=== PATIENT | female | born 2000 | race Caucasian/White ===

== ENCOUNTER 2021-10-30 19:41 | Emergency (ER) | payer BC, SELFPAY ==
[2021-10-30 19:43] VITALS: BP 131/88; PULSE 87; RESP 16; TEMP 36.5; O2SAT 99; BMI 44.1
[2021-10-30 20:20] VITALS: BP 116/71; BP 129/85; BP 150/78; PULSE 123; PULSE 74; PULSE 80
[2021-10-30 20:57] LABS: Basophils # 0.2 K/mm3 (0-0.2); Basophils % 1.3 % (0.1-2.0); Eosinophils # 0.2 K/mm3 (0.0-0.4); Eosinophils % 2.1 % (0.1-12.0); Hematocrit 41.6 % (37.0-47.0); Hemoglobin 13.4 g/dL (12.2-16.2); Lymphocytes # 3.2 K/mm3 (0.7-4.5); Lymphocytes % 29.3 % (10-50); Mean Corpuscular HGB Conc 32.2 g/dL (31.8-35.4); Mean Corpuscular Hemoglobin 25.2 pg (27.0-31.2); Mean Corpuscular Volume 78.3 fl (81-99); Monocytes # 0.6 K/mm3 (0.1-1.0); Monocytes % 5.3 % (1.7-9.3); Neutrophils # 6.8 K/mm3 (1.8-7.8); Platelet Count 329 K/mm3 (142-424); Red Blood Count 5.32 M/mm3 (4.20-5.40); Red Cell Distribution Width 16.5 % (11.5-17.5)
[2021-10-30 20:58] LABS: Chloride 103 mmol/L (98-107); Sodium 138 mmol/L (136-145)
[2021-10-30 20:59] LABS: Potassium 4.1 mmoL/L (3.5-5.1)
[2021-10-30 21:01] LABS: Alanine Aminotransferase 20 U/L (12-78); Albumin Level 4.5 g/dl (3.5-5.0); Albumin/Globulin Ratio 1.5 (1.1-1.8); Alkaline Phosphatase 102 U/L (38-126); Anion Gap 13.1 mEq/L (5-15); Aspartate Amino Transferase 28 U/L (14-36); Blood Urea Nitrogen 14 mg/dl (7-17); Carbon Dioxide 26 mmol/L (22.0-30.0); Creatinine Clearance Estimated 131 mL/min (50-200); Estimated Glomerular Filt Rate 124 ml/min (>60); GFR (African American) 150 ML/MIN (>60); Globulin 3.1 g/dL (1.3-3.2); Total Protein,Serum 7.6 g/dl (6.3-8.2)
[2021-10-30 21:02] LABS: Calcium 8.7 mg/dl (8.4-10.2); Glucose 96 mg/dl (74-100)
[2021-10-30 21:06] LABS: Bilirubin,Total < 0.1 mg/dl (0.2-1.3)
[2021-10-30 21:06] LABS: Microscopic, Urine URINE MICROSCOPIC (MICROSCOPIC)
[2021-10-30 21:13] LABS: Appearance,Urine CLEAR (Clear); Bilirubin,Urine Negative (Negative); Blood, Urine Negative (Negative); Color,Urine YELLOW (Yellow); Glucose,Urine (UA) Negative (Negative); Ketones,Urine Negative (Negative); Leukocyte Esterase,Urine Negative (Negative); Nitrate,Urine Negative (Negative); PH,Urine 6.5 (5.0-8.5); Protein,Urine Negative (Negative); Urobilinogen,Urine 0.2 EU/dl (0.2)
--- NOTE | 2021-10-30 21:23 | HMH.EDHA ---
Discharge Plan Disposition Chief Complaint: Headache Referrals Follow up/Referrals: Georgina Trujillo [Primary Care Provider] - See instructions Clinical Impressions Clinical Impression: Dizziness Instructions Patient Instructions: DI for Headache Discharge ED Provider: Daniel Salinas Headache HPI General Chief Complaint: Headache Stated Complaint: nausea, PANDEY, stomach ache Time Seen by Provider: 10/30/21 21:23 Mode of Arrival: Ambulatory Source of Information: Patient, Significant Other and Medical Record Limitations: No Limitations Description of Symptoms (Recalled from ER Triage Doc. by RN): pt states that she has been light headed dizzieness light headache stomach ache. pt states this has been going on 2 days. the pt states she has a hx of migranes and feels this may be an indicator, History of Present Illness HPI Narrative: over the last few day has episodes of dizzyness dena with mov - no fever/rash or trauma and no focal neuro sx - no recent viral illness MD Complaint: headache Onset (ago): day(s) Location: diffuse Severity: moderate Associated symptoms: none Treatments prior to arrival: none Related Data Allergies Allergy/AdvReac Type Severity Reaction Status Date / Time morphine AdvReac Mild Hives Verified 10/30/21 20:[address] [facility] History Hepatitis A Screen Attestation statement:: This patient has been screened for Hepatitis A risk factors. I have reviewed the patient's past medical history: Yes Social History Smoking Status: Never smoker [facility] Social History Smoking Status: Never smoker alcohol intake: never current occupational status: employed Travel in the last 8 weeks: None ROS Obtained: Yes All systems reviewed & no additional complaints except as documented Constitutional Constitutional: Denies fever(s) and Reports headache(s) Eyes Eyes: Denies diplopia and Denies loss of peripheral vision ENT Ears, Nose, Mouth, and Throat: Reports dizziness, Reports headache(s) and Denies hearing loss Cardiovascular Cardiovascular: Reports chest pain with activity Respiratory Respiratory: Denies cough Gastrointestinal Gastrointestingal: Denies dyspepsia Genitourinary Female Genitourinary: Denies flank pain Musculoskeletal Musculoskeletal: Denies back pain Integumentary/Breasts Skin/Breast: Denies rash Neurologic Neurologic: Reports dizziness and Reports headache(s) Physical Exam General General appearance: alert and in no apparent distress Head Head exam: normocephalic Eye Eye exam: Present PERRL and EOMI; Absent nystagmus ENT ENT exam: Present normal oropharynx, mucous membranes moist and TM's normal bilaterally Neck Neck exam: Present trachea midline Respiratory Respiratory exam: Present normal lung sounds bilaterally Cardiovascular Cardiovascular exam: Present regular rate Abdominal Exam Abdominal exam: Present soft Extremities Exam Extremities exam: Present full ROM Neurological Exam Neurological exam: Present alert, oriented X3 and CN II-XII intact; Absent motor sensory deficit Psychiatric Psychiatric exam: Present normal affect Skin Skin exam: Absent rash Medical Decision Making Medical Records Medical records reviewed: Yes I reviewed the patient's medical records. Tim Inquiry Pt receiving controlled substance: No Vital Signs: 10/30/21 19:43 10/30/21 20:20 Temperature 97.7 F Temperature Source Oral Pulse Rate [Left] 87 Pulse Rate [Orthostatic Lying] 74 Pulse Rate [Orthostatic Sitting] 80 Pulse Rate [Orthostatic Standing] 123 H Respiratory Rate 16 Blood Pressure [Orthostatic Lying] 116/71 Blood Pressure [Orthostatic Sitting] 150/78 H Blood Pressure [Orthostatic Standing] 129/85 Blood Pressure [Right Arm] 131/88 Blood Pressure Mean [Right Arm] 102 02 Sat by Pulse Oximetry 99 Oxygen Delivery Method Room Air Lab Data Lab results reviewed: Yes I reviewed the patient's lab results. Lab Results 10/30/21 20:42: WBC 11.0 H, RBC 5.32, H
--- NOTE | 2021-10-30 21:25 | CT_ITS ---
PROCEDURE INFORMATION: Exam: CT Head Without Contrast Exam date and time: 10/30/2021 10:21 PM Age: 21 years old Clinical indication: Dizziness; Additional info: Dizzy, PANDEY, nausea x 2 days TECHNIQUE: Imaging protocol: Computed tomography of the head without contrast. Radiation optimization: All CT scans at this facility use at least one of these dose optimization techniques: automated exposure control; mA and/or kV adjustment per patient size (includes targeted exams where dose is matched to clinical indication); or iterative reconstruction. COMPARISON: No relevant prior studies available. FINDINGS: Brain: Patchy hypoattenuation in the brainstem suspected be artifactual. Multiple calcified meningiomas on the left, largest is 1.5 cm. No mass effect or midline shift. No intracranial hemorrhage. No intracranial edema. No evidence of acute territorial ischemia. No significant white matter disease. Cerebral ventricles: No ventriculomegaly. Paranasal sinuses: No acute findings. No fluid levels. Mastoid air cells: No significant mastoid effusion. Bones/joints: No acute fracture. Soft tissues: No acute findings. IMPRESSION: 1. No intracranial hemorrhage, mass effect or evidence of acute territorial ischemia. 2. Patchy hypoattenuation in the brainstem suspected to be artifactual. If there is continued clinical concern, follow-up MRI would be appropriate. 3. Multiple calcified meningiomas without associated acute findings.
[2021-10-30 21:34] LABS: Amorphous Sediment,Urine Trace /lpf
[2021-10-30 21:35] LABS: Urine Pregnancy, HCG Qual. Negative (Negative)
[2021-10-30 23:37] VITALS: BP 120/98; PULSE 96; RESP 16; TEMP 36.7; O2SAT 100
== END 2021-10-30 23:40 | disposition home or self-care (01) ==
PROVIDERS: Emergency Provider Emergency Medicine; PCP Nurse Practitioner Family
DX: R42 Dizziness and giddiness (principal); R11.0 Nausea; R10.9 Unspecified abdominal pain; G43.909 Migraine, unspecified, not intractable, without status migrainosus; Z88.5 Allergy status to narcotic agent
CPT/HCPCS: 70450; 80053; 81001; 81025; 85025; 96360; 99285

== ENCOUNTER 2022-02-17 15:52 | Emergency (ER) | payer BC, SELFPAY ==
--- NOTE | 2022-02-17 16:10 | EXP.UTC ---
Discharge Plan Disposition Patient Disposition: Home, Self-Care Condition: Good Prescriptions Prescriptions: New methylprednisolone 4 mg Tablets,Dose Pack 4 mg PO DIRECTED Qty: 21 0RF [id number] [Bromfed DM] 2-30-10 mg/5 mL Syrup 5 ml PO Q6H PRN (Reason: Cough) Qty: 240 0RF ondansetron 4 mg Tablet,Disintegrating 4 mg PO Q8H PRN (Reason: Nausea) Qty: 20 0RF azithromycin [Zithromax] 250 mg tablet 250 mg PO UD DOSE PK Qty: 6 0RF Rx Instructions: Take two (2) tablets today, then one (1) tablet days #2 thru #5 Referrals Follow up/Referrals: Georgina Trujillo [Primary Care Provider] - See instructions Activity Restrictions/Add. Instructions Additional Instructions/Restrictions: Drink plenty of fluids. Take tylenol or ibuprofen for pain or fever. Take the medications as directed. Follow up with your regular doctor. GO TO THE ER FOR ANY WORSENING SYMPTOMS Clinical Impressions Clinical Impression: Acute viral syndrome, Bronchitis Stand Alone Forms Stand Alone Forms: Work/School Release Instructions Patient Instructions: DI for Acute Bronchitis, DI for Viral Syndrome Discharge ED Provider: Todd [facility] General Stated complaint: CALEB suárez Time Seen by Provider: 02/17/22 16:09 History of Present Illness Provider Complaint: She states that for the past 2 days she has had sore throat, chills, body aches, fever and malaise. Related Data Previous Rx's Medication Instructions Recorded azithromycin 250 mg tablet 250 mg PO UD DOSE PK #6 tabs 02/17/22 (Zithromax) [id number] 5 ml PO Q6H PRN Cough #240 mL 02/17/22 2 mg-30 mg-10 mg/5 mL oral syrup (Bromfed DM) methylprednisolone 4 mg tablets in 4 mg PO DIRECTED #21 tabs 02/17/22 a dose pack ondansetron 4 mg disintegrating 4 mg PO Q8H PRN Nausea #20 tabs 02/17/22 tablet Allergies Allergy/AdvReac Type Severity Reaction Status Date / Time morphine AdvReac Mild Hives Verified 10/30/21 20:25 [facility] Disclaimer: The information contained in this section may have been updated after the patient was seen, as this information can be updated by other users. Social History Smoking Status: Never smoker alcohol intake: never current occupational status: employed Travel in the last 8 weeks: None ROS Obtained: Yes All systems reviewed & no additional complaints except as documented Constitutional Constitutional: Reports chills and Reports fever(s) Eyes Eyes: Denies eye discharge ENT Ears, Nose, Mouth, and Throat: Reports as per HPI Cardiovascular Cardiovascular: Denies chest pain Respiratory Respiratory: Denies chest congestion and Reports cough Gastrointestinal Gastrointestingal: Reports nausea; Denies abdominal pain, constipation, cramping, diarrhea or vomiting Musculoskeletal Musculoskeletal: Denies arthralgias Integumentary/Breasts Skin/Breast: Denies rash Neurologic Neurologic: Denies paresthesias Physical Exam General General appearance: alert and in no apparent distress Head Head exam: atraumatic, normocephalic and normal inspection Eye Eye exam: Present normal appearance, PERRL and EOMI ENT ENT exam: Present normal exam, normal oropharynx, mucous membranes moist, TM's normal bilaterally and normal external ear exam Neck Neck exam: Present normal inspection, full ROM and trachea midline; Absent meningismus or lymphadenopathy Chest Chest inspection: Present normal inspection and symmetric chest wall rise; Absent tenderness Respiratory Respiratory exam: Present normal lung sounds bilaterally; Absent respiratory distress Cardiovascular Cardiovascular exam: Present regular rate and normal rhythm; Absent JVD Abdominal Exam Abdominal exam: Present soft and normal bowel sounds; Absent distention, tenderness or guarding Extremities Exam Extremities exam: Present normal inspection, full ROM and no
[2022-02-17 16:15] VITALS: BP 108/86; PULSE 94; RESP 20; TEMP 36.5; O2SAT 99; BMI 46.2
[2022-02-17 16:32] LABS: UTC Influenza A Antigen Negative (Negative); UTC Strep Screen (Rapid) Negative (Negative)
[2022-02-17 16:33] LABS: UTC Influenza B Antigen Negative (Negative)
[2022-02-17 17:16] VITALS: BP 136/75; PULSE 119; RESP 18; TEMP 37.3; O2SAT 99
== END 2022-02-17 17:16 | disposition home or self-care (01) ==
PROVIDERS: Emergency Provider Nurse Practitioner Family; PCP Nurse Practitioner Family
DX: J20.9 Acute bronchitis, unspecified (principal)
CPT/HCPCS: 87804; 87880; 99212; 99213; G0463

== ENCOUNTER → 2022-04-28 09:50 | Outpatient (CLI) | payer BC, SELFPAY ==
--- NOTE | 2022-04-28 09:56 | US_ITS ---
FINAL REPORT CLINICAL HISTORY: ABNORMAL BLEEDING COMPARISON: None FINDINGS: Transvaginal sonographic images of the pelvis were obtained. The uterus measures 7.4 x 3.3 x 5.0 cm. The endometrium measures 3 mm, which is within normal limits. No uterine mass is identified. The right ovary measures 2.4 cm in length and left ovary measures 3.2 cm in length. Normal blood flow seen to the ovaries. There are multiple small follicles in bilateral ovaries which may represent PCOS. There is no evidence of free fluid. IMPRESSION: Multiple small follicles bilateral ovaries may represent PCOS. Reviewed, Interpreted and Dictated by Shailesh Key III, MD Transcribed by Davina Chen Authenticated and . [facility]
== END ==
PROVIDERS: PCP Nurse Practitioner Family; Visit Provider Nurse Practitioner Family
DX: N93.9 Abnormal uterine and vaginal bleeding, unspecified (principal)
CPT/HCPCS: 76830

== ENCOUNTER 2024-01-17 12:33 | Emergency (ER) | payer BC, SELFPAY ==
[2024-01-17 13:30] VITALS: BP 132/71; PULSE 100; RESP 18; TEMP 36.9; O2SAT 100; BMI 47.5
--- NOTE | 2024-01-17 13:40 | ED_ITS ---
Discharge Plan Disposition Patient Disposition: Home, Self-Care Condition: Good Prescriptions Prescriptions: New ondansetron 4 mg Tablet,Disintegrating 4 mg PO Q8H PRN (Reason: Nausea) Qty: 12 0RF Referrals Follow up/Referrals: Georgina Trujillo [Primary Care Provider] - See instructions Activity Restrictions/Add. Instructions Additional Instructions/Restrictions: Drink plenty of fluids. Take tylenol for pain or fever. Take the medications as directed. Follow up with your regular doctor. GO TO THE ER FOR ANY WORSENING SYMPTOMS Clinical Impressions Clinical Impression: Gastroenteritis Stand Alone Forms Stand Alone Forms: Work/School Release Instructions Patient Instructions: Viral Gastroenteritis, DI for Viral Gastroenteritis -- Adult, Ondansetron Print Language Print Language: Belarusian Discharge ED Provider: Todd Baker [facility] General Stated complaint: v/d abd pain Mode of Arrival: Ambulatory Source of Information: Patient Limitations: No Limitations Time Seen by Provider: 01/17/24 13:40 Description of Symptoms (Recalled from Triage Doc. by RN): PATIENT C/O VOMITING, LIGHT-HEADED, DIARRHEA, STOMACH PAIN AND SWELLING THAT STARTED THIS MORNING HEENT Symptoms (Recalled from RN notes): No Resp Symptoms (Recalled from RN notes): No Skin Symptoms (Recalled from RN notes): No MS Symptoms (Recalled from RN notes): No Functional Status (Recalled from RN notes): WNL Related Data Previous Rx's ?Medication ?Instructions ?Recorded ondansetron 4 mg disintegrating 4 mg PO Q8H PRN Nausea #12 tabs 01/17/24 tablet Allergies Allergy/AdvReac Type Severity Reaction Status Date / Time morphine AdvReac Mild Hives Verified 10/30/21 20:25 Worker's Comp Is this a Worker's Comp case?: No [facility] Disclaimer: The information contained in this section may have been updated after the patient was seen, as this information can be updated by other users. 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 (Updated 01/17/24 @ 14:24 by Todd Baker APRN) Urinary tract infection Migraine Surgical History (Updated 01/17/24 @ 13:37 by Cathy Zhong RN) History of tonsillectomy History of cholecystectomy Social History Smoking Status: Never smoker alcohol intake: never current occupational status: employed Travel in the last 8 weeks: None ROS Obtained: Yes All systems reviewed & no additional complaints except as documented Constitutional Constitutional: Denies chills, Denies fever(s) and Reports poor appetite ENT Ears, Nose, Mouth, and Throat: Denies dizziness and Denies sore throat Cardiovascular Cardiovascular: Denies dyspnea Respiratory Respiratory: Denies chest congestion, Denies cough and Denies dyspnea Gastrointestinal Gastrointestingal: Reports as per HPI; Denies abdominal pain Genitourinary Female Genitourinary: Denies difficulty voiding, Denies dysuria, Denies hematuria, Denies urinary frequency, Denies urinary incontinence, Denies urinary hesitancy and Denies urinary urgency Musculoskeletal Musculoskeletal: Denies arthralgias Integumentary/Breasts Skin/Breast: Denies rash Neurologic Neurologic: Denies dizziness Physical Exam General General appearance: alert and in no apparent distress Head Head exam: atraumatic and normocephalic Eye Eye exam: Present normal appearance, PERRL and EOMI ENT ENT exam: Present normal exam, normal oropharynx, mucous membranes moist, TM's normal bilaterally and normal external ear exam Neck Neck exam: Present normal inspection, full ROM and trachea midline; Absent tenderness, meningismus or lymphadenopathy Chest Chest inspection: Present normal inspection and symmetric chest wall rise; Absent tenderness, rash or abscess Respiratory Respiratory exam: Present normal lung sounds bilaterally; Absent respiratory distress, wheezes or stridor Cardiovascular Cardiovascular exam: Present regular rate and normal rhythm; Absent irregular rhythm, systolic murmur, diastolic murmur or JVD Abdominal Exam Abdominal exam: Present soft and hyperactive bowel sounds; Absent distention, tenderness, guarding, rebound, rigidity, psoas sign, obturator sign, heel tap sign, Lange's sign, Rovsing's sign or tenderness at McBurney's Point Extremities Exam Extremities exam: Present normal inspection and full ROM; Absent tenderness Back Exam Back exam: Present normal inspection and full ROM; Absent tenderness, CVA tenderness (R) or CVA tenderness (L) Neurological Exam Neurological exam: Present alert, oriented X3 and CN II-XII intact Psychiatric Psychiatric exam: Present normal affect and normal mood Skin Skin exam: Present warm, dry, intact and normal color Lymphatic Lymphatic Findings: no adenopathy Medical Decision Making Medical Records Medical records reviewed: No I reviewed the patient's medical records. Screening: Per USPSTF and CDC recommendations, given the prevalence of disease in our region, it is our hospital?s policy to screen for HIV and viral Hepatitis for all patients aged 18 and over and those with ongoing risk factors. Tim Inquiry Pt receiving controlled substance: No Vital Signs: 01/17/24 13:30 Temperature 98.5 F Temperature Source Oral Pulse Rate [Left Brachial] 100 H Respiratory Rate 18 Blood Pressure [Left Arm] 132/71 Blood Pressure Mean [Left Arm] 91 Blood Pressure Source [Left Arm] Automatic Cuff Blood Pressure Position [Left Arm] Sitting 02 Sat by Pulse Oximetry 100 Oxygen Delivery Method Room Air Lab Data Lab results reviewed: Yes I reviewed the patient's lab results.
[2024-01-17 14:27] VITALS: BP 132/71; PULSE 100; RESP 18; TEMP 36.9; O2SAT 100
== END 2024-01-17 14:29 | disposition home or self-care (01) ==
PROVIDERS: Emergency Provider Nurse Practitioner Family; PCP Nurse Practitioner Family
DX: K52.9 Noninfective gastroenteritis and colitis, unspecified (principal); R10.9 Unspecified abdominal pain; R11.10 Vomiting, unspecified; R42 Dizziness and giddiness; R63.8 Other symptoms and signs concerning food and fluid intake
CPT/HCPCS: 99212; G0381

== ENCOUNTER 2024-02-03 10:07 | Emergency (ER) | payer BC, SELFPAY ==
[2024-02-03 11:05] VITALS: BP 125/77; PULSE 94; RESP 16; TEMP 37.3; O2SAT 99; BMI 46.2
[2024-02-03 11:28] LABS: UTC Influenza A Antigen Negative (Negative); UTC Influenza B Antigen Negative (Negative)
--- NOTE | 2024-02-03 11:31 | ED_ITS ---
Discharge Plan Disposition Patient Disposition: Home, Self-Care Condition: Good Prescriptions Prescriptions: New oseltamivir [Tamiflu] 75 mg capsule 75 mg PO BID 5 Days Qty: 10 0RF No Action ondansetron 4 mg Tablet,Disintegrating 4 mg PO Q8H PRN (Reason: Nausea) Qty: 12 0RF Referrals Follow up/Referrals: Georgina Trujillo [Primary Care Provider] - See instructions Activity Restrictions/Add. Instructions Additional Instructions/Restrictions: No sign of a bacterial infection. Likely viral. Viruses can take 7-14 days to run their course. Nasal saline and bulb syringe or nose Daily to remove nasal drainage to help with nasal congestion. Hard to eat, drink, sleep with nasal congestion so important to keep this cleaned out. Monitor temp. Tylenol or Motrin as needed for pain or fever Encourage fluids, water, Gatorade, Powerade, Pedialyte if infant/toddler/child Warm salt water gargles Warm fluids Sore throat lozenges Sleep elevated Humidifier/vaporizer Follow-up immediately for new or worsening symptoms or no noticeable improvement over the next 48-72 hours. Clinical Impressions Clinical Impression: Upper respiratory infection, viral, Exposure to influenza Stand Alone Forms Stand Alone Forms: Work/School Release Instructions Patient Instructions: DI for Viral Upper Respiratory Infection -- Adult Print Language Print Language: Lao Discharge ED Provider: Juno ([facility])Lisseth [facility] [place] HPI General Stated complaint: cough, fever, chills, B/A Mode of Arrival: Ambulatory Source of Information: Patient Limitations: No Limitations Time Seen by Provider: 02/03/24 11:28 Description of Symptoms (Recalled from Triage Doc. by RN): PATIENT C/O COUGH, BODY ACHES, CONGESTION AND CHILLS X 2 DAYS HEENT Symptoms (Recalled from RN notes): Yes Resp Symptoms (Recalled from RN notes): Yes Skin Symptoms (Recalled from RN notes): No MS Symptoms (Recalled from RN notes): No Functional Status (Recalled from RN notes): WNL History of Present Illness Provider Complaint: 23-year-old female presents for complaints of cough, body aches, congestion and chills for 2 days. Patient states her son is positive for flu A. Patient states she took a at home flu swab that was positive for flu A. Related Data Previous Rx's ?Medication ?Instructions ?Recorded ondansetron 4 mg disintegrating 4 mg PO Q8H PRN Nausea #12 tabs 01/17/24 tablet oseltamivir 75 mg capsule (Tamiflu) 75 mg PO BID 5 days #10 caps 02/03/24 Allergies Allergy/AdvReac Type Severity Reaction Status Date / Time morphine AdvReac Mild Hives Verified 10/30/21 20:25 Worker's Comp Is this a Worker's Comp case?: No [facility] Disclaimer: The information contained in this section may have been updated after the patient was seen, as this information can be updated by other users. 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) Smoking Status: Never smoker alcohol intake: never current occupational status: employed Travel in the last 8 weeks: None Have you lived/traveled outside [place] in past 30 days?: No Contact w/someone who lives/traveled outside US past 30 days?: No Exposure to someone with infectious disease in past 14 days?: No Do you have a fever (greater than 100.4 F or 38 C)?: Yes Have you tested positive for COVID-19: No Exposed to someone with COVID-19 in past 14 days?: No Do you have a sore throat?: No Do you have a cough?: Yes Do you have any weakness?: No Do you have any diarrhea?: No Are you experiencing any unusual bleeding?: No Do you have any muscle aches/pain?: No Do you have any abdominal pain?: No Are you experiencing loss of taste or smell?: No ROS Obtained: Yes Systems reviewed as appropriate & no additional complaints except as documented Physical Exam General General appearance: alert and in no apparent distress Head Head exam: atraumatic Eye Eye exam: Present normal appearance ENT ENT exam: Present normal exam, normal oropharynx, mucous membranes moist and TM's normal bilaterally Respiratory Respiratory exam: Present normal lung sounds bilaterally Cardiovascular Cardiovascular exam: Present regular rate and normal rhythm Neurological Exam Neurological exam: Present alert and oriented X3 Skin Skin exam: Present warm and intact Medical Decision Making Medical Records Medical records reviewed: Yes I reviewed the patient's medical records. Screening: Per USPSTF and CDC recommendations, given the prevalence of disease in our region, it is our hospital?s policy to screen for HIV and viral Hepatitis for all patients aged 18 and over and those with ongoing risk factors. Tim Inquiry Pt receiving controlled substance: No Vital Signs: 02/03/24 11:05 Temperature 99.2 F Temperature Source Oral Pulse Rate [Left Brachial] 94 H Respiratory Rate 16 Blood Pressure [Left Arm] 125/77 Blood Pressure Mean [Left Arm] 93 Blood Pressure Source [Left Arm] Automatic Cuff Blood Pressure Position [Left Arm] Sitting 02 Sat by Pulse Oximetry 99 Oxygen Delivery Method Room Air Lab Data Lab results reviewed: Yes I reviewed the patient's lab results. Lab Results 02/03/24 11:19: Influenza Type A Ag Negative, Influenza Type B Ag Negative
[2024-02-03 11:42] VITALS: BP 125/77; PULSE 94; RESP 16; TEMP 37.3; O2SAT 99
[2024-02-03 11:51] LABS: Coronavirus 19, PCR Not Detected (NotDetected); Influenza B, PCR Not Detected (NotDetected)
[2024-02-03 16:43] LABS: Influenza A, PCR Detected (NotDetected)
== END 2024-02-03 11:46 | disposition home or self-care (01) ==
PROVIDERS: Emergency Provider Nurse Practitioner Family; PCP Nurse Practitioner Family
DX: J06.9 Acute upper respiratory infection, unspecified (principal)
CPT/HCPCS: 87636; 87804; 99213; G0381